=== PATIENT | female | born 1995 | race Caucasian/White ===

== ENCOUNTER 2017-02-15 16:39 | Emergency (ER) | payer OTHER, MEDICAID ==
[~2017-02-15] VITALS: Wt 59.0 kg
[2017-02-15] MEDS ORDERED: PREVIFEM TABLE1 EACH PO (16:51)
[2017-02-15] MEDS ORDERED: CYCLOBENZAPRINE10 MG PO (18:43)
== END 2017-02-15 18:41 | disposition home or self-care (01) ==
LOC: ED 16:39
DX: S16.1XXA Strain of muscle, fascia and tendon at neck level, initial encounter (principal); S60.221A Contusion of right hand, initial encounter; V89.2XXA Person injured in unspecified motor-vehicle accident, traffic, initial encounter; Y93.89 Activity, other specified; Y92.413 State road as the place of occurrence of the external cause; Y99.9 Unspecified external cause status